=== PATIENT | male | born 2000 | race Caucasian/White ===

== ENCOUNTER 2023-03-12 11:43 | Emergency (ER) | payer OTHER, SELFPAY ==
--- NOTE | ~2023-03-12 | XR_ITS ---
EXAMINATION: XR chest 2V DATE: 03/12/2023 12:27 INDICATION: Cough TECHNIQUE: PA and lateral views of the chest are obtained. COMPARISON: None available FINDINGS: The lungs are free of acute opacities. No pleural effusion or pneumothorax. The cardiomedia stinal silhouette is normal. The visualized bones and soft tissues are unremarkable. IMPRESSION: 1. No acute cardiopulmonary abnormality. Reviewed, dictated and finalized at location L. RMEDIATE ACCOUNTANT
[2023-03-12 11:47] VITALS: BP 132/70; PULSE 68; RESP 17; TEMP 36.4; O2SAT 100
--- NOTE | 2023-03-12 12:10 | ECG_ITS ---
Measurements Intervals [place] Rate: 57 P: 38 DE: 158 QRS: 68 QRSD: 95 T: 39 QT: 389 QTc: 381 Interpretive Statements SINUS BRADYCARDIA BORDERLINE ECG NO PREVIOUS ECG AVAILABLE FOR COMPARISON Electronically Signed On 03-12-2023 12:56:41 FINANCIAL SERVICES INTERN by Jerome Gabriel D.O.
--- NOTE | 2023-03-12 12:13 | ED.GENADULT ---
HPI - General Adult General Chief complaint: Abdominal Pain Stated complaint: abd pain Time Seen by Provider: 03/12/23 11:59 Source: patient and family Limitations: no limitations History of Present Illness HPI narrative: This is a 22-year-old male with past medical history acid reflux and rhabdomyolysis who presents with what is initially described as left upper quadrant abdominal pain which patient describes as more left lower chest pain. This started at approximately 10:15 AM. He did note that he was nauseated this morning but did not vomit. His last bowel movement was this morning in which he had diarrhea. Loose stools that began yesterday but he denies any blood in his stools. His pain is 7 out of 10 in severity. He continues to have an appetite. He does have what feels like a dry mouth to him, he has no penile discharge or groin pain. Pain is worse when flat. Describes pain as a stabbing. Pain is non radiating. Related Data Allergies Allergy/AdvReac Type Severity Reaction Status Date / Time No Known Allergies Allergy Verified 03/12/23 11:50 [facility] Past Medical History Medical History (Updated 03/13/23 @ 00:00 by Neil Sales) Acid reflux Rhabdomyolysis Surgical History Surgical History (Updated 03/12/23 @ 12:16 by Lakia Mcmahan MD) Hx of appendectomy Social History Social History (Updated 03/13/23 @ 19:46 by Lakia Mcmahan MD) Social History: Former . Discharged by [employer] on disability. 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 Alcohol intake: current Alcohol use details: rare Exam Const: General: healthy appearing, no acute distress and alert; No confusion, diaphoretic or ill appearing Nutritional Appearance: well nourished Orientation/consciousness: patient oriented x3 Limitations: no limitations HENMT: Head: normal to inspection Mouth: Yes moist mucous membranes Other: Gross auditory acuity intact Eyes: Direct Ophthalmoscopy: no photophobia Resp: Effort & Inspection: normal respiratory effort, not labored, no retractions, not tachypneic and no use of accessory muscles Other: Poor effort with respirations Cardio: Rate: regular rate Rhythm: regular rhythm Heart sounds: no murmurs Other: no pericardial friction rub GI: Inspection: non-distended GI Palp: Yes Soft to palpation, No Tenderness to palpation present (GI), No Guarding due to palpation present (GI), No Rigid due to palpation and No Rebound tenderness present Skin: General skin exam: normal color, no jaundice and no pallor Rashes: no rashes Neuro: General: patient oriented x3, moves all extremities and no meningeal signs Speech: normal speech Gait exam (Neuro): Normal gait present Extrem: General: normal to inspection Psych: Mental Status: mental status grossly normal Affect: normal affect Attitude: cooperative Course Vital Signs Vital signs: Vital Signs Temperature 97.5 F L 03/12/23 11:47 Pulse Rate 68 03/12/23 11:47 Respiratory Rate 17 03/12/23 11:47 Blood Pressure 132/70 03/12/23 11:47 Pulse Oximetry 100 03/12/23 11:47 Oxygen Delivery Room Air 03/12/23 11:47 Temperature 97.5 F L 03/12/23 11:47 Pulse Rate 60 03/12/23 14:01 Respiratory Rate 16 03/12/23 14:01 Blood Pressure 122/78 03/12/23 14:01 Pulse Oximetry 100 03/12/23 14:01 Oxygen Delivery Room Air 03/12/23 11:47 Medical Decision Making MDM Narrative Medical decision making narrative: This is a 22-year-old male with past medical history acid reflux and rhabdomyolysis who presents with what is initially described as left upper quadrant abdominal pain which patient describes as more left lower chest pain. We will obtain basic labs and CXR as well as EKG and troponin and covid test. EKG is concerning for likely acute pericarditis. Troponin WNL and 4plex testing negative. CXR normal. No pericardial effusion on bedside [id number] ultrasound though parietal and visceral pericardium are sh
[2023-03-12] MEDS: ASPIRIN 81 MG CHEWABLE TABLET 324 MG PO (12:41)
[2023-03-12] MEDS: ACETAMINOPHEN 500 MG TABLET 1000 MG PO (12:41)
[2023-03-12] MEDS: SODIUM CHLORIDE 0.9% IV 1,000 ML 999 ML IV CONT (12:42)
[2023-03-12] MEDS: BELLADONNA ALK/PHENOB ELIX 10 ML, MAG HYDROX/ALUMINUM HYD/SIMETH 30 ML, LIDOCAINE HCL 2... PO (12:42)
[2023-03-12 12:57] LABS: Basophils Percent Auto 0.5 % (0.2-1.2); Eosinophils Absolute Auto 0.1 K/mm3 (0-0.3); Eosinophils Percent Auto 1.5 % (0-4.4); Hematocrit 43.7 % (42.0-52.0); Hemoglobin 14.8 g/dL (14.0-18.0); Immature Granulocyte Absolute 0.03 K/mm3 (0.00-0.031); Immature Granulocyte Percent A 0.4 % (0-0.5); Lymphocytes Absolute Auto 2.06 K/mm3 (0.9-3.2); Lymphocytes Percent Auto 25.1 % (18.3-44.2); Mean Corpuscular HGB Conc 33.9 g/dl (32-36); Mean Corpuscular Hemoglobin 29.5 pg (26-34); Mean Corpuscular Volume 87.1 fl (80-100); Mean Platelet Volume 9.5 fl (7.4-10.4); Monocytes Absolute Auto 0.6 K/mm3 (0.1-0.6); Monocytes Percent Auto 7.4 % (2.6-8.5); Neutrophils Absolute Auto 5.4 K/mm3 (1.3-6.7); Neutrophils Percent Auto 65.1 % (45.5-73.1); Platelet Count Result 230 k/mm3 (150-375); Red Blood Count 5.02 M/mm3 (4.6-6.20); Red Cell Distribution Width 12.1 % (11.5-14.5); White Blood Count 8.2 K/mm3 (4.5-10.0)
[2023-03-12 13:08] LABS: Alanine Aminotransferase 23 U/L (6-50); Albumin Level 4.6 g/dL (3.5-5.1); Alkaline Phosphatase 65 U/L (38-126); Anion Gap 11 mmol/L (8-16); Aspartate Amino Transferase 26 U/L (17-59); Bilirubin,Total 0.5 mg/dL (0.2-1.3); Blood Urea Nitrogen 8 mg/dL (9-20); Calcium 9.2 mg/dL (8.4-10.2); Carbon Dioxide 24 mmol/L (22-30); Chloride 106 mmol/L (98-107); Creatine Kinase 166 U/L (55-170); Estimated CRCL calculation 140 ml/min; Estimated Glomerular Filt Rate > 60; Glucose 93 mg/dL (65-110); Lipase 51 U/L (23-300); Potassium 3.5 mmol/L (3.4-5.0); Sodium 141 mmol/L (137-145)
[2023-03-12 13:19] LABS: Troponin I < 0.012 ng/mL (0.000-0.034)
[2023-03-12 13:33] LABS: Influenza A QL RT-PCR Negative (Negative); Influenza B QL RT-PCR Negative (Negative); RSV RNA, RT-PCR Negative (Negative); SARS-CoV-2 RNA PCR Negative (Negative)
[2023-03-12 14:01] VITALS: BP 122/78; PULSE 60; RESP 16; O2SAT 100
== END 2023-03-12 14:03 | disposition home or self-care (01) ==
PROVIDERS: Emergency Provider Student in an Organized Health Care Education/Training Program
DX: I31.9 Disease of pericardium, unspecified (principal); Z20.822 Contact with and (suspected) exposure to COVID-19; K21.9 Gastro-esophageal reflux disease without esophagitis; R00.1 Bradycardia, unspecified
CPT/HCPCS: 36415; 71046; 80053; 82550; 83690; 84484; 85025; 87637; 93005; 96360; 99284; A9270; J7030

== ENCOUNTER 2023-04-06 15:47 | Emergency (ER) | payer OTHER, SELFPAY ==
[2023-04-06] VITALS (12 sets, daily range): BP systolic 115–137; BP diastolic 66–76; PULSE 78–101; RESP 14–27; TEMP 36.6; O2SAT 97–100
--- NOTE | ~2023-04-06 | XR_ITS ---
EXAMINATION: XR chest 2V 04/06/2023 16:43 INDICATION: Chest pain PROCEDURE: 2 view chest COMPARISON: 2 view chest FINDINGS: The lungs are clear. The cardiomediastinal silhouette is within normal limits. There are no pleural effusions. There is no pneumothorax suspected. IMPRESSION: 1: NO ACUTE CARDIOPULMONARY DISEASE. Reviewed, dictated and finalized at location B. [employer]
--- NOTE | 2023-04-06 16:30 | ECG_ITS ---
Measurements Intervals [place] Rate: 75 P: 52 [place]: 176 QRS: 67 QRSD: 77 T: 38 QT: 325 QTc: 363 Interpretive Statements SINUS RHYTHM COMPARED TO ECG 03/12/2023 12:33:47 SINUS RHYTHM NOW PRESENT Electronically Signed On 04-07-2023 13:21:29 DRAPERY OPERATOR by Amena Roman M.D.
--- NOTE | 2023-04-06 16:32 | ED.CHESTPAIN ---
HPI - Chest Pain General Chief Complaint: Chest Pain <IDA Herrera Last Filed: 04/06/23 16:35> Stated Complaint: chest pain/sob <IDA Herrera Last Filed: 04/06/23 16:35> Time Seen by Provider: 04/06/23 22:26 <Marguerite Trinh PA-C - Last Filed: 04/06/23 16:35> Source: patient <Yessi IDA Shah Last Filed: 04/06/23 23:58> Mode of arrival: ambulatory <IDA Mancilla Last Filed: 04/06/23 23:58> Limitations: no limitations <IDA Mancilla Last Filed: 04/06/23 23:58> History of Present Illness HPI narrative: 22-year-old male with history of acid reflux, rhabdomyolysis and recent diagnosis of pericarditis on 03/12/2023 reports for evaluation for chest pain that started at 10:00 a.m. this morning while at work. Patient states this chest pain starts in the right anterior chest wall and radiates to the left anterior chest wall to the left lower lid. He reports associated shortness of breath. Nothing makes the pain better or worse. He states he has been taking the colchicine as prescribed and has not missed any doses. He has not followed up with a audiovisual technician. Denies syncope, fever. He does report a cough. <IDA Herrera Last Filed: 04/06/23 16:35> Related Data Allergies/Adverse Reactions: Allergies Allergy/AdvReac Type Severity Reaction Status Date / Time No Known Allergies Allergy Verified 04/06/23 15:47 <Marguerite Trinh PA-C - Last Filed: 04/06/23 16:35> Review of Systems Review of Systems: CONSTITUTIONAL: Denies fever, chills, or sweats. EYES: Denies visual changes, redness, or discharge. ENT: Denies rhinorrhea, congestion, sore throat, or otalgia. CARDIOVASCULAR: See HPI RESPIRATORY: Denies cough or dyspnea. GASTROINTESTINAL: Denies abdominal pain, nausea, vomiting, or diarrhea. GENITOURINARY: Denies dysuria or hematuria. SKIN: Denies rash or itching. MUSCULOSKELETAL: Denies back pain, joint pain, or myalgia. NEUROLOGIC: Denies headache, numbness, or weakness. PSYCHIATRIC: Denies anxiety or depression. <Marguerite Trinh PA-C - Last Filed: 04/06/23 16:35> PMFSH Past Medical History Medical History: Medical History Acid reflux Rhabdomyolysis <Marguerite Trinh PA-C - Last Filed: 04/06/23 16:35> Surgical History Surgical History: Surgical History Hx of appendectomy <Marguerite Trinh PA-C - Last Filed: 04/06/23 16:35> Social History Social History: Social History Social History: Former . Discharged by [employer] on disability. 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 HEAD: Normocephalic, atraumatic. NECK: Supple. CHEST: Clear to auscultation. No respiratory distress. HEART: Regular rate and rhythm. No murmur heard. Normal peripheral pulses. ABDOMEN: Soft, nontender, nondistended, normal active bowel sounds. EXTREMITIES: Normal range of motion. No edema. SKIN: Warm, dry, no rash. NEURO: No focal deficits. Alert and oriented x3 <Marguerite Trinh PA-C - Last Filed: 04/06/23 16:35> Course Course Emergency Course: Patient was updated on workup. Resting comfortably. Stable for discharge home <Yessi Naranjo PA-C - Last Filed: 04/06/23 23:58> Vital Signs Vital signs: Vital Signs Temperature 97.8 F 04/06/23 16:17 Pulse Rate 101 H 04/06/23 16:17 Respiratory Rate 20 04/06/23 16:17 Blood Pressure 115/66 04/06/23 16:17 Pulse Oximetry 100 04/06/23 16:17 Oxygen Delivery Room Air 04/06/23 16:17 Temperature 97.8 F 04/06/23 16:17 Pulse Rate 84 04/06/23 23:27 Respiratory Rate 14
[2023-04-06] MEDS: KETOROLAC 30 MG/ML VIAL (*BKC) IM (16:53)
[2023-04-06 17:07] LABS: Basophils Percent Auto 0.6 % (0.2-1.2); Eosinophils Absolute Auto 0.1 K/mm3 (0-0.3); Eosinophils Percent Auto 1.4 % (0-4.4); Hematocrit 41.8 % (42.0-52.0); Hemoglobin 14.5 g/dL (14.0-18.0); Immature Granulocyte Absolute 0.03 K/mm3 (0.00-0.031); Immature Granulocyte Percent A 0.6 % (0-0.5); Lymphocytes Absolute Auto 0.68 K/mm3 (0.9-3.2); Lymphocytes Percent Auto 13.9 % (18.3-44.2); Mean Corpuscular HGB Conc 34.7 g/dl (32-36); Mean Corpuscular Volume 86.4 fl (80-100); Mean Platelet Volume 9.2 fl (7.4-10.4); Monocytes Absolute Auto 0.7 K/mm3 (0.1-0.6); Monocytes Percent Auto 13.7 % (2.6-8.5); Neutrophils Absolute Auto 3.4 K/mm3 (1.3-6.7); Neutrophils Percent Auto 69.8 % (45.5-73.1); Platelet Count Result 177 k/mm3 (150-375); Red Blood Count 4.84 M/mm3 (4.6-6.20); Red Cell Distribution Width 11.8 % (11.5-14.5); White Blood Count 4.9 K/mm3 (4.5-10.0)
[2023-04-06 17:12] LABS: INR 1.2; Prothrombin Time 15.2 Seconds (11.1-14.7)
[2023-04-06 17:13] LABS: Alanine Aminotransferase 21 U/L (6-50); Albumin Level 4.4 g/dL (3.5-5.1); Alkaline Phosphatase 69 U/L (38-126); Anion Gap 11 mmol/L (8-16); Aspartate Amino Transferase 25 U/L (17-59); Bilirubin,Total 0.5 mg/dL (0.2-1.3); Blood Urea Nitrogen 7 mg/dL (9-20); Carbon Dioxide 26 mmol/L (22-30); Chloride 99 mmol/L (98-107); Estimated Glomerular Filt Rate > 60; Glucose 90 mg/dL (65-110); Lipase 47 U/L (23-300); Partial Thromboplastin Time 28.6 SECONDS (22.3-36.8); Potassium 3.5 mmol/L (3.4-5.0); Sodium 136 mmol/L (137-145)
[2023-04-06 17:24] LABS: NT Pro B Type Natriuretic Pept < 20 pg/mL (19.9-100); Troponin I < 0.012 ng/mL (0.000-0.034)
[2023-04-06 21:03] LABS: Troponin I < 0.012 ng/mL (0.000-0.034)
[2023-04-06 22:53] LABS: Troponin I < 0.012 ng/mL (0.000-0.034)
[2023-04-06 22:59] LABS: Creatine Kinase 194 U/L (55-170)
[2023-04-06] MEDS: ACETAMINOPHEN 500 MG TABLET 1000 MG PO (23:02)
[2023-04-06] MEDS: diazePAM INJ (*CRX) 10 MG/2 ML SYRINGE 5 MG IV PUSH (23:03)
--- NOTE | 2023-04-06 23:07 | PC.NURSE ---
report and care given to CHELITA Harrison. all questions answered
[2023-04-06 23:30] LABS: D Dimer < 0.27 ug/mL (<0.48)
[2023-04-06 23:39] LABS: Influenza A QL RT-PCR Negative (Negative); Influenza B QL RT-PCR Negative (Negative); RSV RNA, RT-PCR Negative (Negative); SARS-CoV-2 RNA PCR Positive (Negative)
[2023-04-07 00:10] VITALS: BP 123/61; PULSE 86; RESP 17; O2SAT 98
== END 2023-04-07 00:10 | disposition home or self-care (01) ==
PROVIDERS: Emergency Medicine; Physician Assistant; Emergency Provider Physician Assistant
DX: U07.1 COVID-19 (principal); K21.9 Gastro-esophageal reflux disease without esophagitis
CPT/HCPCS: 36415; 71046; 80053; 82550; 83690; 83880; 84484; 85025; 85380; 85610; 85730; 87637; 93005; 96372; 96374; 99284; A9270; J1885; J3360